=== PATIENT | female | born 1980 | race African-American/Black ===

== ENCOUNTER 2016-05-03 17:44 | Emergency (ER) | payer MEDICAID, OTHER ==
[~2016-05-03] VITALS: Ht 167.6 cm; Wt 79.0 kg
[2016-05-03 17:46] VITALS: BP 164/98
[2016-05-03] MEDS ORDERED: IBUPROFEN 600MG TABLET PO ONE (18:15)
== END 2016-05-03 19:27 | disposition home or self-care (01) ==
LOC: ER 17:44
DX: S93.492A Sprain of other ligament of left ankle, initial encounter (principal); X50.1XXA Overexertion from prolonged static or awkward postures, initial encounter; Y93.89 Activity, other specified; Y92.89 Other specified places as the place of occurrence of the external cause; Y99.8 Other external cause status; Z88.0 Allergy status to penicillin
CPT/HCPCS: 73610; 99284